=== PATIENT | female | born 1985 | race Caucasian/White ===

== ENCOUNTER 2018-09-04 19:11 | Emergency (ER) | payer BC ==
[~2018-09-04] VITALS: Ht 157.5 cm; Wt 74.8 kg
[2018-09-04 19:47] VITALS: BP 110/62
--- NOTE | 2018-09-04 19:47 | NUR ---
Patient discharged to home in stable conditon. Written and verbal after care instructions given. Patient verbalizes understanding of instructions. Walked out of ER with no distress noted
== END 2018-09-04 19:48 | disposition home or self-care (01) ==
LOC: ER 19:15
DX: Z48.01 Encounter for change or removal of surgical wound dressing (principal)
CPT/HCPCS: A4663